=== PATIENT | female | born 1995 | race Caucasian/White ===

== ENCOUNTER → 2018-11-09 | Outpatient (CLI) | payer BC ==
[~2018-11-09] MED LIST: CIPR-225 PO; METR500T PO; OXYC1TAB12 PO; SULF1TAB35 PO
--- NOTE | 2018-11-09 18:04 | Diagnostic Imaging Report ---
PROCEDURE: US Non-OB pelvis comp/trans. TECHNIQUE: Multiple realtime grayscale images were obtained of the pelvis in various projections endovaginally. Transabdominal imaging was also performed. INDICATION: Chronic pelvic pain. FINDINGS: The previous pelvic ultrasound exam of 09/21/2015 noted a small amount of free fluid but failed to show any acute abnormality. There is now an IUD in place within the uterus. The IUD appears to be in the lower uterine segment. The uterus itself is nongravid and not enlarged measuring 5.9 x 5.2 x 2.8 cm. The endometrial lining is not abnormally thickened. There is no focal mass involving the uterus to suggest a fibroid. Both ovaries were identified. Each ovary contains a few subcentimeter follicles. There is good blood flow to each ovary, and there is no sign of torsion. There is no solid pelvic mass or significant free fluid collection identified. IMPRESSION: 1. There is no evidence for an acute pelvic abnormality. 2. There has been interval insertion of an IUD. The IUD seems to be positioned in the lower uterine segment. Dictated by: Dictated on workstation # [id number]
== END ==
LOC: RAD 12:57
PROVIDERS: ATTEND Obstetrics & Gynecology
DX: R10.2 Pelvic and perineal pain (principal); Z97.5 Presence of (intrauterine) contraceptive device
CPT/HCPCS: 76830; 76856

== ENCOUNTER 2020-12-02 10:16 | Emergency (ER) | payer BC, OTHER ==
[~2020-12-02] VITALS: Ht 172.3 cm; Wt 81.6 kg
--- NOTE | 2020-12-02 11:41 | ED Lower Extremity ---
General Chief Complaint: Lower Extremity Stated Complaint: L KNEE PAIN Nursing Triage Note: pt reports being at work playing a game that involved jumping up and down repeatedly. pt reports she felt like her top of her leg went one way while the bottom half went another way. pt reports she hasnt walked on leg but doesnt feel like she would be able to. has a sharp pain that radiates from thigh to ankle. Nursing Sepsis Screen: No Definite Risk Source: patient Exam Limitations: no limitations History of Present Illness Date Seen by Provider: December 02, 2020 Time Seen by Provider: 11:40 Initial Comments To ER with reports of posterolateral severe left knee pain that prevents her from fully extending the knee or weightbearing on the left leg. This began after jumping up and down at work playing a game. The pain radiates proximally up to the left lateral thigh and distally down to the lateral left calf. Onset: just prior to arrival Severity: moderate Pain/Injury Location: left knee Method of Injury: other (Jumping) Modifying Factors: Worse With Movement Allergies and Home Medications Allergies Coded Allergies: No Known Drug Allergies (Unverified , 09/21/15) Home Medications Ciprofloxacin HCl 500 Mg Tablet, 500 MG PO BID Prescribed by: RENEE BUTLER on 01/16/16 1439 Metronidazole 500 Mg Tablet, 500 MG PO BID Prescribed by: RENEE BUTLER on 01/16/16 1439 Oxycodone HCl/Acetaminophen 1 Each Tablet, 1-2 TAB PO Q4H PRN for PAIN Prescribed by: MALCOLM DOUGHERTY on 01/16/16 1201 Patient Home Medication List Home Medication List Reviewed: Yes Review of Systems Constitutional: see HPI EENTM: see HPI Respiratory: no symptoms reported Cardiovascular: no symptoms reported Genitourinary: no symptoms reported Musculoskeletal: see HPI Skin: no symptoms reported Psychiatric/Neurological: No Symptoms Reported Past Gtaytkd-Clpzdp-Waqkjh Hx Patient Social History Alcohol Use: Occasionally Uses Drug of Choice: marijuana Smoking Status: Never a Smoker Recent Infectious Disease Expo: No Recent Hopitalizations: No Seasonal Allergies Seasonal Allergies: No Past Medical History Surgeries: Yes (BMT, wisdom teeth) Respiratory: No Cardiac: No Neurological: No Reproductive Disorders: No Gastrointestinal: No Musculoskeletal: No Endocrine: No Cancer: No Psychosocial: Yes ADD/ADHD, Anxiety, Depression Integumentary: No Blood Disorders: No Adverse Reaction/Blood Tranf: No Physical Exam Vital Signs Vital Signs - First Documented 12/02/20 12/02/20 10:34 12:30 Temp 37.0 Pulse 101 Resp 12 B/P (MAP) 139/91 (107) Pulse Ox 99 O2 Delivery Room Air Capillary Refill : Less Than 3 Seconds Height, Weight, BMI Height: 5'7.00" Weight: 152lbs. 0.0oz. 68.715392oz; 27.00 BMI Method:Stated General Appearance: WD/WN, no apparent distress Neck: non-tender, full range of motion Respiratory: no respiratory distress, no accessory muscle use Hips: bilateral hip non-tender, bilateral hip normal inspection, bilateral hip normal range of motion Legs: bilateral leg non-tender, bilateral leg normal inspection, bilateral leg normal range of motion Knees: left knee pain (Soft tissue tenderness posterior and lateral) Ankles: bilateral ankle non-tender, bilateral ankle normal inspection, bilateral ankle normal range of motion Feet: bilateral foot non-tender, bilateral foot normal inspection Neurologic/Psychiatric: alert, normal mood/affect, oriented x 3 Skin: normal color, warm/dry Progress/Results/Core Measures Results/Orders My Orders Orders - DEONTE MELISSA APRN Knee, Left, 3 Views (12/02/20 11:39) Hydrocodone/Apap 5/325 Tablet (Lortab 5 (12/02/20 11:45) Ibuprofen Tablet (Motrin Tablet) (12/02/20 11:45) Medications Given in ED Current Medications Medications Dose Ordered Sig/Rayray Route Start Time Stop Time Status Last Admin Dose Admin Acetaminophen/ Hydrocodone Bitart 1 ea ONCE ONCE PO 12/02/20 11:45 12/02/20 11:46 DC 12/02/20 11:43 1 EA Ibuprofen 800 mg ONCE ONCE PO 12/02/20 11:45 12/02/20 11:46 DC 12/02/20 11:43 800 MG Vital Signs/I&O 12/02/20 12/02/20 10:34 12:30 Temp 37.0 Pulse 101 91 Resp 12 18 B/P (MAP) 139/91 (107) 119/62 Pulse Ox 99 99 O2 Delivery Room Air Blood Pressure Mean: 107 Departure Communication (Admissions) Patient of pain seems to be along the biceps for Tray insertion site at the fibular head. This would fit with her mechanism of injury as well. Impression Primary Impression: Strain of distal biceps femoris tendon Disposition: HOME, SELF-CARE Condition: Stable Departure-Patient Inst. Decision time for Depature: 11:58 Referrals: [facility] (PCP/Family) Primary Care Physician Patient Instructions: Hamstring Muscle Strain ED Add. Discharge Instructions: 1. Your knee x-ray shows the bones to be normal appearing. We will start by treating this as a biceps for Tray tendinopathy which is a strain or tear of that tendon. Treatment for this is a wrap with compression to the area and an ice pack to the area as well as anti-inflammatories like naproxen or ibuprofen. Use crutches as directed. When the pain is improved you can stop using this. It may take about a week. If you have pain into next week it would be advisable to follow-up with [facility] to discuss obtaining an MRI to evaluate the structures within the knee such as the meniscus and ligaments. All discharge instructions reviewed with patient and/or family. Voiced understanding. Work/School Note: Work Release Form Date Seen in the Emergency Department: December 02, 2020 Return to Work: December 03, 2020 Other Restrictions Listed Below: Crutches x1 week DEONTE MELISSA APRN December 02, 2020 11:41
[2020-12-02] MEDS ORDERED: IBUPROFEN 800 MG (MOTRIN) TAB PO ONE (11:45)
[2020-12-02] MEDS ORDERED: HYDROcodone/APAP 5 MG/325 MG (LORTAB) TAB PO ONE (11:45)
--- NOTE | 2020-12-02 12:01 | Diagnostic Imaging Report ---
INDICATION: Left knee pain. TIME OF EXAM: 11:53 AM FINDINGS: 3 views left knee were obtained. Alignment is normal. Joint spaces are well-maintained. The articular surfaces are smooth. No fracture, dislocation or effusion is identified. IMPRESSION: No acute bony abnormality is detected. Dictated by: Dictated on workstation # [id number]
[2020-12-02 12:30] VITALS: BP 119/62
== END 2020-12-02 12:27 | disposition home or self-care (01) ==
LOC: EDUNIT# 10:16 → ER 10:20
DX: S76.312A Strain of muscle, fascia and tendon of the posterior muscle group at thigh level, left thigh, initial encounter (principal); X50.9XXA Other and unspecified overexertion or strenuous movements or postures, initial encounter; Y92.59 Other trade areas as the place of occurrence of the external cause; Y99.0 Civilian activity done for income or pay
CPT/HCPCS: 73562

== ENCOUNTER → 2020-12-17 | Outpatient (CLI) | payer OTHER ==
--- NOTE | 2020-12-17 10:20 | Diagnostic Imaging Report ---
PROCEDURE: MRI left joint lower extremity without contrast. TECHNIQUE: Multiplanar, multisequence non contrast-enhanced MRI of the left lower extremity was accomplished. INDICATION: Left knee pain, injury in September 2020. COMPARISON: Radiograph from 12/02/2020 FINDINGS: No acute fracture is seen in the left knee. Alignment is normal. There is moderate bone marrow edema in the posterior tibial plateau medially and laterally, as well as at the lateral femoral condyle, likely from contusions from pivot shift injury. There is a large left knee joint effusion. The articular cartilage in the patellofemoral compartment appears intact. The articular cartilage in the medial and lateral compartments appear intact. There is a horizontal tear of the posterior horn of the medial meniscus. The lateral meniscus demonstrates a complex, mostly radial, tear posteriorly near the root, which may be complete. There is a complete tear of the anterior cruciate ligament. The posterior cruciate ligament is intact. The medial collateral ligament is bowed and there is underlying edema which is likely due to the meniscal pathology. The lateral collateral ligamentous complex is intact. The extensor mechanism is intact. The medial and lateral retinacula are intact. IMPRESSION: 1. Complete tear of the anterior cruciate ligament. 2. Tears of the medial and lateral menisci. 3. Bone contusions about the left knee consistent with pivot shift injury. 4. Large left knee joint effusion. Dictated by: Dictated on workstation # [id number]
--- NOTE | 2020-12-17 10:51 | Diagnostic Imaging Report ---
PROCEDURE: MRI left joint lower extremity without contrast. TECHNIQUE: Multiplanar, multisequence non contrast-enhanced MRI of the left lower extremity was accomplished. INDICATION: Ankle pain. There are no prior studies available for comparison. The axial STIR series shows diffuse increased signal in the subcutaneous fat along the medial aspect of the ankle joint and hindfoot. However the posterior tibialis, flexor digitorum longus and flexor hallucis longus tendons coursing through this edema seem to be intact. There is also mild edema/inflammation of the soft tissues along the lateral aspect of the hindfoot. The peroneal tendons in the anterior talofibular ligament show no sign of an acute injury. The Achilles tendon is also felt to be intact. There is no abnormal signal arising from the osseous structures to suggest bone edema or a fracture. The ankle mortise does not appear to be widened and the talar dome is smooth. There is no sign of a joint effusion. IMPRESSION: 1. There is considerable edema/inflammation of the subcutaneous fat along the medial aspect of the ankle and hindfoot. Mild edema/inflammation is also seen along the lateral aspect of the hindfoot. However the major ligaments and tendons seem to be intact. 2. There is no acute bony abnormality identified. 3. There is no sign of osteochondritis dissecans and the ankle mortise is not widened. Dictated by: Dictated on workstation # [id number]
--- NOTE | 2020-12-17 10:59 | Diagnostic Imaging Report ---
PROCEDURE: US left lower extremity venous. TECHNIQUE: Multiple Real-time grayscale images were obtained over the left lower extremity in various projections. Additional duplex Doppler and color Doppler images were also obtained. INDICATION: Left calf pain. COMPARISON: There are no prior studies available for comparison. FINDINGS: There is generally good blood flow and compressibility at all levels. There is no evidence for deep venous thrombosis. IMPRESSION: There is no evidence for deep venous thrombosis of the left lower extremity. Dictated by: Dictated on workstation # [id number]
== END ==
LOC: RAD 08:36
PROVIDERS: ATTEND Family Medicine
DX: S83.282A Other tear of lateral meniscus, current injury, left knee, initial encounter (principal); S83.242A Other tear of medial meniscus, current injury, left knee, initial encounter; X58.XXXA Exposure to other specified factors, initial encounter
CPT/HCPCS: 73721